=== PATIENT | female | born 1985 | race Caucasian/White ===

== ENCOUNTER → 2017-02-10 | Outpatient (CLI) | payer OTHER ==
[~2017-02-10] MED LIST: GADOBUTROL 7.5 MMOL/7.5 ML VIAL INT ART ONE; IOHEXOL 300 MG/ML 50 ML VIAL. INT ART ONE; LIDOCAINE 1% Multi-Dose 20 ML VIAL. ID ONE
--- NOTE | 2017-02-10 15:24 | KCIC ---
MR arthrogram of the right shoulder Indication: Right shoulder pain constantly for 2 years. Technique: Intra-articular contrast injected into the glenohumeral joint and is reported separately. Routine 4 plane sequences were obtained, including ABER positioning. Findings: Acromioclavicular joint:Intact. Rotator cuff: Mild thickening and signal within the supraspinatus and infraspinatus tendons, compatible with tendinosis. There is no measurable fluid rupture or gap. No evidence of subscapularis tendon tear. No significant muscle atrophy. Subdeltoid bursa: Mild contrast accumulation in the bursa likely due to the injection. There is no communicating defect. Articular cartilage: No acute cartilage defect or advanced DJD. Labrum: Mild contrast accumulation in the posterosuperior labrum, series 6, image 12, compatible with a very small tear. Biceps tendon: Intact Bones: No lesion or acute fracture. Soft tissue: No acute findings. Impression: 1. Rotator cuff tendinosis, without evidence of a tear. 2. Findings compatible with a small posterosuperior labral tear. Electronically signed by: Pillo Hobbs MD (02/10/2017 3:21 PM) [id number]
--- NOTE | 2017-02-10 15:26 | KCIC ---
PROCEDURE: Right shoulder injection using fluoroscopic guidance, prior to MR. HISTORY: Shoulder pain. TECHNIQUE: The procedure was explained to the patient as were potential risks, including among others infection, bleeding or allergic reaction. All questions were answered. Informed written and verbal consent was obtained. The shoulder was prepped and draped in the usual sterile manner. Following administration of local anesthetic, a 22-gauge needle was advanced into the anterior shoulder. Following negative aspiration, 12 cc of a solution of 5cc Omnipaque-300 contrast, 5 cc 1% lidocaine, 10 cc normal saline, and 0.1 cc gadolinium was injected without difficulty. The needle was removed. There was good hemostasis at the injection site. The patient left in stable condition without immediate complication. The patient was given postprocedural instructions, and instructed to contact us or the ER if there are any complications. A single spot image is obtained. FLUOROSCOPY TIME:?35 seconds Electronically signed by: Pillo Hobbs MD (02/10/2017 3:23 PM) [id number]
== END | disposition home or self-care (01) ==
LOC: KCIC 12:40
PROVIDERS: ATTEND Orthopaedic Surgery
DX: M25.511 Pain in right shoulder (principal)
CPT/HCPCS: 73040; 73222; A9585; Q9967